=== PATIENT | male | born 1975 | race Caucasian/White ===

== ENCOUNTER 2021-01-22 09:49 | Emergency (ER) | payer OTHER ==
[~2021-01-22] VITALS: Ht 185.4 cm; Wt 90.9 kg
[2021-01-22 11:32] LABS: COVID AG,FIA SOURCE NASAL SWAB
[2021-01-22 11:34] VITALS: BP 130/72
== END 2021-01-22 12:16 | disposition home or self-care (01) ==
LOC: EMS 10:06
DX: J40 Bronchitis, not specified as acute or chronic (principal); J06.9 Acute upper respiratory infection, unspecified; F17.210 Nicotine dependence, cigarettes, uncomplicated; Z20.822 Contact with and (suspected) exposure to COVID-19
CPT/HCPCS: 99283; 99406